=== PATIENT | male | born 1955 | race Caucasian/White ===

== ENCOUNTER 2016-10-31 10:53 | Day surgery (SDC) | payer BC ==
--- NOTE | ~2016-10-31 | EGD ---
EGD REPORT [facility] [address] [address] NAME: JORDYN KIM : [birth year] STATUS : REG [facility] PAT#: [id number] AGE: 61 ADM/REG DATE : 10/31/16 MR#: [id number] REPORT SERV DATE: 10/31/16 DICTATED BY: JORDYN EARLY DATE: 10/31/16 REPORT STATUS : Draft TRANSCRIBED BY: [facility] DATE: 10/31/16 Endoscopy Center Patient Name: Jordyn Kim Date of : 1955 Attending MD: JORDYN EARLY MD Procedure Date No Time: 10/31/2016 Procedure: Upper GI endoscopy Indications: Iron deficiency anemia Referring MD: BOO FERRERA MD Medicines: Monitored Anesthesia Care Complications: No immediate complications. Procedure: Pre-Anesthesia Assessment: - ASA Grade Assessment: III - A patient with severe systemic disease. After obtaining informed consent, the endoscope was passed under direct vision. Throughout the procedure, the patient's blood pressure, pulse, and oxygen saturations were monitored continuously. The GIF [id number] was introduced through the mouth, and advanced to the second part of duodenum. The upper GI endoscopy was accomplished without difficulty. The patient tolerated the procedure well. Findings: The examined esophagus was normal. The entire examined stomach was normal. The cardia and gastric fundus were normal on retroflexion. The duodenal bulb and 2nd part of the duodenum were normal. Biopsies were taken with a cold forceps for histology. Impression: - Normal esophagus. - Normal stomach. - Normal duodenal bulb and 2nd part of the duodenum. Biopsied. Recommendation: - Patient has a contact number available for emergencies. The signs and symptoms of potential delayed complications were discussed with the patient. Return to normal activities tomorrow. Written discharge instructions were provided to the patient. - Regular diet. - Continue present medications. - Await pathology results. Procedure Code(s): --- Professional --- EGD REPORT [facility] [address] [address] NAME: JORDYN KIM : [birth year] STATUS : REG [facility] PAT#: [id number] AGE: 61 ADM/REG DATE : 10/31/16 MR#: [id number] REPORT SERV DATE: 10/31/16 DICTATED BY: JORDYN EARLY DATE: 10/31/16 REPORT STATUS : Draft TRANSCRIBED BY: [employer] DATE: 10/31/16 [id number], Esophagogastroduodenoscopy, flexible, transoral; with biopsy, single or multiple Diagnosis Code(s): --- Professional --- D50.9, Iron deficiency anemia, unspecified CPT copyright 2013 [employer]. All rights reserved. The codes documented in this report are preliminary and upon assistant office manager review may be revised to meet current compliance requirements. JORDYN EARLY MD 10/31/2016 12:52 PM This report has been signed electronically. Number of Addenda: 0 Note Initiated On: 10/31/2016 12:39 PM Scope Withdrawal Time 0 hours 0 minutes 0 seconds [address] [id number]
--- NOTE | ~2016-10-31 | EGD ---
EGD REPORT [facility] [address] [address] NAME: JORDYN KIM : [birth year] [place] [facility] PAT#: [id number] AGE: 61 ADM/REG DATE : 10/31/16 MR#: [id number] REPORT SERV DATE: 10/31/16 DICTATED BY: JORDYN EARLY DATE: 10/31/16 REPORT STATUS : Draft TRANSCRIBED BY: [facility] DATE: 10/31/16 Endoscopy Center Patient Name: Jordyn Kim Date of : 1955 Attending MD: JORDYN EARLY MD Procedure Date No Time: 10/31/2016 Procedure: Colonoscopy Indications: High risk colon cancer surveillance: Personal history of colonic polyps, Incidental - Iron deficiency anemia Referring MD: BOO FERRERA MD Medicines: Monitored Anesthesia Care Complications: No immediate complications. Procedure: Pre-Anesthesia Assessment: - ASA Grade Assessment: III - A patient with severe systemic disease. After I obtained informed consent, the scope was passed under direct vision. Throughout the procedure, the patient's blood pressure, pulse, and oxygen saturations were monitored continuously. The CF [id number] was introduced through the anus and advanced to the cecum, identified by appendiceal orifice and ileocecal valve. The colonoscopy was performed with moderate difficulty due to significant looping, a tortuous colon and the patient's body habitus. Successful completion of the procedure was aided by applying abdominal pressure. The patient tolerated the procedure well. The quality of the bowel preparation was adequate. Findings: The digital rectal exam was normal. Pertinent negatives include no palpable rectal lesions. A sessile polyp was found in the cecum. The polyp was 5 mm in size. The polyp was removed with a cold biopsy forceps. Resection and retrieval were complete. A sessile polyp was found in the transverse colon. The polyp was 3 mm in size. The polyp was removed with a cold biopsy forceps. Resection and retrieval were complete. Multiple diverticula were found in the sigmoid colon. Hemorrhoids were found during endoscopy and were moderate. Impression: - One 5 mm polyp in the cecum. Resected and retrieved. - One 3 mm polyp in the transverse colon. Resected and retrieved. - Diverticulosis in the sigmoid colon. - Hemorrhoids. EGD REPORT [address] [address] NAME: JORDYN KIM : [birth year] [place] [facility] [place]#: [id number] AGE: 61 ADM/REG DATE : 10/31/16 MR#: [id number] REPORT SERV DATE: 10/31/16 DICTATED BY: JORDYN EARLY DATE: 10/31/16 REPORT STATUS : Draft TRANSCRIBED BY: [email or web address] DATE: 10/31/16 Recommendation: - Patient has a contact number available for emergencies. The signs and symptoms of potential delayed complications were discussed with the patient. Return to normal activities tomorrow. Written discharge instructions were provided to the patient. - Regular diet. - Continue present medications. - Return to GI clinic in 4 weeks. - Await pathology results. - Repeat colonoscopy in 5 years for surveillance. Procedure Code(s): --- Professional --- 23260, Colonoscopy, flexible, proximal to splenic flexure; with biopsy, single or multiple Diagnosis Code(s): --- Professional --- D12.3, Benign neoplasm of transverse colon D12.0, Benign neoplasm of cecum K64.9, Unspecified hemorrhoids K57.30, Diverticulosis of large intestine without perforation or abscess without bleeding Z86.010, Personal history of colonic polyps CPT copyright 2013 [employer]. All rights reserved. The codes documented in this report are preliminary and upon fork operator review may be revised to meet current compliance requirements. JORDYN EARLY MD 10/31/2016 1:12 PM This report has been signed electronically. Number of Addenda: 0 Note Initiated On: 10/31/2016 12:34 PM Scope Withdrawal Time 0 hours 10 minutes 2 seconds [address] [place] [address]
[~2016-10-31 10:53] MED LIST: ACTOS30 PO; ASAB PO; BUPROBAN150 MG PO; CALTRAT600 PO; CHLORTHALID25 MG OR; CHLORTHALID50 MG OR; CYMBALTA60 PO; ENDOCET1 TA1 PO; FERROUS SULF325 M1 PO; FLOMAX4 PO; FOLIC PO; GLUCOPHAGE1000 MG PO; HALF81 PO; HYGROTON 25 MG25 MG PO; HYT2 PO; HYT5 PO; I20 PO; ILA60 PO; INDE60 PO; IRON INFUSION IV; KLONO1 PO; KLONO2 PO; KLOR-CON 1010 MEQ PO; KLOR-CON M2020 MEQ PO; L20 PO; LEVOTHYROXIN50 MCG PO; LIPITOR10 PO; LOPID6 PO; LYRICA50 PO; MAGNEBIND PO; MELATONIN10 M2 PO; MIRAPEX250 PO; MIRAPEX5 PO; MOBIC7.5 PO; MONO20 PO; MULTIVITAMI1 PO; NEUR100 PO; NIACIN 500 PO; P10 PO; PENICILLN VK500 MG PO; PERCOCET 7.5/321 TAB PO; PERCOCET1 TA2 PO; PLAQ200B PO; PLAVIX PO; PRAV10 PO; PRIN20 PO; PRIN5 PO; PROTONIX PO; TREXALL10 MG PO; TRICOR145 PO; VICODINTAB PO; VITAMIN D1000 UNI1 PO; VITAMIN D400 UNI1 PO; WELLXL150 PO; WELLXL300 PO; ZANTAC 150 PO; ZAROX2.5B PO; ZOL50 PO
== END 2016-10-31 23:59 | disposition home health service (06) ==
LOC: DMU 10:53
PROVIDERS: Internal Medicine Gastroenterology
PROC: 0DBL8ZX Excision of Transverse Colon, Via Natural or Artificial Opening Endoscopic, Diagnostic (ICD-10-PCS; 2016-10-31)
PROC: 0DB98ZX Excision of Duodenum, Via Natural or Artificial Opening Endoscopic, Diagnostic (ICD-10-PCS; principal; 2016-10-31 13:00)
PROC: 0DBH8ZX Excision of Cecum, Via Natural or Artificial Opening Endoscopic, Diagnostic (ICD-10-PCS; 2016-10-31 13:00)
DX: D12.0 Benign neoplasm of cecum (principal); D12.3 Benign neoplasm of transverse colon; K64.9 Unspecified hemorrhoids; K57.30 Diverticulosis of large intestine without perforation or abscess without bleeding; D50.9 Iron deficiency anemia, unspecified; E03.9 Hypothyroidism, unspecified; I12.9 Hypertensive chronic kidney disease with stage 1 through stage 4 chronic kidney disease, or unspecified chronic kidney disease; N18.9 Chronic kidney disease, unspecified; G47.33 Obstructive sleep apnea (adult) (pediatric); G62.9 Polyneuropathy, unspecified; E11.22 Type 2 diabetes mellitus with diabetic chronic kidney disease; E78.00 Pure hypercholesterolemia, unspecified; K21.9 Gastro-esophageal reflux disease without esophagitis; F32.9 Major depressive disorder, single episode, unspecified; Z86.010 Personal history of colon polyps; Z99.81 Dependence on supplemental oxygen; Z98.890 Other specified postprocedural states; Z79.899 Other long term (current) drug therapy; Z87.891 Personal history of nicotine dependence; Z87.442 Personal history of urinary calculi
CPT/HCPCS: 82962; 88305